=== PATIENT | female | born 1995 | race American Indian/Alaskan Native ===

== ENCOUNTER 2018-04-23 21:56 | Emergency (ER) | payer SELFPAY ==
[2018-04-23 22:52] VITALS: BP 142/79
[2018-04-23 23:29] LABS: Basophils # (Auto) 0.1 K/mm3 (0.0-0.1); Eosinophils # (Auto) 0.2 K/mm3 (0.0-0.4); Eosinophils % (Auto) 2.4 % (0.0-4.3); Hematocrit 39.6 % (30.3-42.9); Hemoglobin 13.5 gm/dl (10.1-14.3); Lymphocytes # (Auto) 2.5 K/mm3 (1.2-5.4); Lymphocytes % (Auto) 26.8 % (13.4-35.0); Mean Corpuscular HGB Conc 34 % (30-34); Mean Corpuscular Hemoglobin 26 pg (28-32); Mean Corpuscular Volume 77 fl (79-97); Monocytes # (Auto) 0.7 K/mm3 (0.0-0.8); Platelet Count 277 K/mm3 (140-440); Red Blood Count 5.11 M/mm3 (3.65-5.03); Red Cell Distribution Width 13.2 % (13.2-15.2)
[2018-04-24 00:20] LABS: Alanine Aminotransferase 14 units/L (7-56); Albumin 4.2 g/dL (3.9-5); BUN/Creatinine Ratio 13; Blood Urea Nitrogen 9 mg/dL (7-17); Calcium 9.3 mg/dL (8.4-10.2); Hemolysis Index 36
[2018-04-24 00:26] LABS: Bilirubin,Urine NEG (Negative); Blood,Urine NEG (Negative); Color,Urine Yellow (Yellow); Mucus,Urine FEW /HPF; Protein,Urine <15 mg/dL mg/dL (Negative); Urobilinogen,Urine < 2.0 mg/dL (<2.0)
[2018-04-24 00:34] LABS: HCG Qualitative,Urine Negative (Negative)
--- NOTE | 2018-04-24 00:52 | Emergency Department Report ---
ED Abdominal Pain HPI - General Chief Complaint: Abdominal Pain Stated Complaint: ABD PAIN Time Seen by Provider: 04/24/18 00:50 Source: patient Mode of arrival: Ambulatory Limitations: No Limitations - History of Present Illness Initial Comments: 22-year-old -[place] female comes in complaining of sharp left lower quadrant abdominal pain since Sunday. Patient reports that applying pressure to the left lower quadrant makes it better. Patient reports she tried laxatives which did not help. Patient also reports that she tried ibuprofen which did not help. Patient denies any nausea vomiting fever or chills. Patient does elicit she had a tumor removed in 2014 from [place]. Patient reports it was a benign tumor at that time. Patient does not have a primary care provider. She reports no known drug allergies currently takes no medications on a daily basis. MD Complaint: abdominal pain -: days(s) (3) Location: LLQ Radiation: none Migration to: no migration Severity: moderate Severity scale (0 -10): 6 Quality: sharp Consistency: constant Improves With: other (applying pressure) Worsens With: nothing Associated Symptoms: denies other symptoms Treatments Prior to Arrival: NSAIDs - Related Data Previous Rx's Medication Instructions Recorded Last Taken Type Ciprofloxacin HCl [Cipro] 500 mg PO Q12H #20 tab 09/01/14 Unknown Rx Metoclopramide [Reglan] 10 mg PO ACHS #20 tablet 09/01/14 Unknown Rx metroNIDAZOLE [Flagyl] 500 mg PO TID #21 tablet 09/01/14 Unknown Rx oxyCODONE /ACETAMINOPHEN [Percocet 1 tab PO Q6HR PRN #20 tablet 09/01/14 Unknown Rx 5/325] Acetaminophen [Tylenol] 975 mg PO Q6H PRN #30 capsule 04/24/18 Unknown Rx Allergies Allergy/AdvReac Type Severity Reaction Status Date / Time No Known Allergies Allergy Unverified 08/31/14 21:24 ED Review of Systems ROS: Stated complaint: ABD PAIN Other details as noted in HPI Comment: All other systems reviewed and negative Gastrointestinal: abdominal pain (llq). denies: nausea, vomiting, diarrhea, constipation Genitourinary: denies: urgency, dysuria, frequency, hematuria, discharge Musculoskeletal: denies: back pain, joint swelling, arthralgia Skin: denies: rash, lesions Neurological: denies: headache, weakness, paresthesias Psychiatric: denies: anxiety, depression Hematological/Lymphatic: denies: easy bleeding, easy bruising ED Past Medical Hx - Past Medical History Previous Medical History?: No Hx Asthma: No - Surgical History Additional Surgical History: abd surgery to remove tumor 2014 - Social History Smoking Status: Never Smoker Substance Use Type: None - Medications Home Medications: Home Medications Medication Instructions Recorded Confirmed Last Taken Type Ciprofloxacin HCl [Cipro] 500 mg PO Q12H #20 tab 09/01/14 Unknown Rx Metoclopramide [Reglan] 10 mg PO ACHS #20 tablet 09/01/14 Unknown Rx metroNIDAZOLE [Flagyl] 500 mg PO TID #21 tablet 09/01/14 Unknown Rx oxyCODONE /ACETAMINOPHEN [Percocet 1 tab PO Q6HR PRN #20 tablet 09/01/14 Unknown Rx 5/325] Acetaminophen [Tylenol] 975 mg PO Q6H PRN #30 capsule 04/24/18 Unknown Rx ED Physical Exam - General Limitations: No Limitations General appearance: alert, in no apparent distress - Head Head exam: Present: atraumatic, normocephalic - Eye Eye exam: Present: EOMI - ENT ENT exam: Present: mucous membranes moist - GI/Abdominal GI/Abdominal exam: Present: soft, tenderness (left lower quadrant). Absent: distended - Extremities Exam Extremities exam: Present: normal inspection, full ROM - Neurological Exam Neurological exam: Present: alert, oriented X3 - Psychiatric Psychiatric exam: Present: normal affect, normal mood - Skin Skin exam: Present: warm, dry, intact, normal color. Absent: rash ED Course Vital Signs 04/23/18 22:42 Temperature 99.2 F Pulse Rate 96 H Respiratory 16 Rate Blood Pressure 142/79 [Left] O2 Sat by Pulse 99 Oximetry ED Medical Decision Making - Lab Data Result diagrams: 04/23/18 23:06 04/23/18 23:06 - Radiology Data Radiology results: report reviewed FINAL REPORT PROCEDURE: CT ABDOMEN PELVIS W CON TECHNIQUE: Computerized axial tomography of the abdomen and pelvis was performed after the IV injection of iodinated nonionic contrast. HISTORY: left lower quadrant abdominal pain COMPARISON: No prior studies are available for comparison. FINDINGS: Visualized lower thorax: No significant abnormality. Liver: Normal size and attenuation. Spleen: Normal size and attenuation. Gallbladder and biliary system: Normal. Pancreas: Normal. Adrenals: Normal. Kidneys: Normal. GI tract: There is no bowel obstruction, colitis or enteritis. The appendix is normal.. Lymph nodes and mesentery: Normal. Vasculature: Normal. Bladder: Normal. Reproductive organs: Uterus and ovaries are unremarkable.. Peritoneum: There is no ascites or free air, abscess or adenopathy.. Musculoskeletal structures: No significant abnormality. Other: None. IMPRESSION: There is no acute intra-abdominal abnormality per Transcribed By: CO Dictated By: MARIANNE VELAZQUEZ MD Electronically Authenticated By: MARIANNE VELAZQUEZ MD Signed Date/Time: 04/24/18309 DD/ 9 TD/TT: 04/24/18309 - Medical Decision Making Patient has been evaluated by this provider in fast track. Urinalysis ordered shows 8 wbc's and small leukoesterase CT of abdomen and pelvic is unremarkable normal examination We'll discharge patient home on Tylenol and patient is to follow-up with her primary care provider. Critical care attestation.: If time is entered above; I have spent that time in minutes in the direct care of this critically ill patient, excluding procedure time. ED Disposition Clinical Impression: LLQ abdominal pain Disposition: DC-01 TO HOME OR SELFCARE Is pt being admited?: No Does the pt Need Aspirin: No Condition: Stable Instructions: Abdominal Pain (ED) Additional Instructions: Please take pain medication as needed. Follow-up with her primary care provider. CT scan of abdomen and pelvis within normal limits. Prescriptions: Acetaminophen [Tylenol] 975 mg PO Q6H PRN #30 capsule PRN Reason: Pain, Moderate (4-6) Referrals: PRIMARY MD LUIS MANUEL [Primary Care Provider] - 3-5 Days [facility] [Provider Group] - 3-5 Days Forms: Work/School Release Form(ED)
--- NOTE | 2018-04-24 03:11 | Cat Scan Report ---
FINAL REPORT PROCEDURE: CT ABDOMEN PELVIS W CON TECHNIQUE: Computerized axial tomography of the abdomen and pelvis was performed after the IV injection of iodinated nonionic contrast. HISTORY: left lower quadrant abdominal pain COMPARISON: No prior studies are available for comparison. FINDINGS: Visualized lower thorax: No significant abnormality. Liver: Normal size and attenuation. Spleen: Normal size and attenuation. Gallbladder and biliary system: Normal. Pancreas: Normal. Adrenals: Normal. Kidneys: Normal. GI tract: There is no bowel obstruction, colitis or enteritis. The appendix is normal.. Lymph nodes and mesentery: Normal. Vasculature: Normal. Bladder: Normal. Reproductive organs: Uterus and ovaries are unremarkable.. Peritoneum: There is no ascites or free air, abscess or adenopathy.. Musculoskeletal structures: No significant abnormality. Other: None. IMPRESSION: There is no acute intra-abdominal abnormality per
== END 2018-04-24 04:56 | disposition home or self-care (01) ==
LOC: ED 21:56
DX: R10.32 Left lower quadrant pain (principal)
CPT/HCPCS: 36415; 74177; 80053; 81001; 81025; 85025; 87086; 99284; Q9967